=== PATIENT | female | born 2000 | race Caucasian/White ===

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

== ENCOUNTER → 2019-01-26 | Outpatient (CLI) | payer BC, OTHER ==
[2019-01-26 13:50] LABS: HEMATOCRIT 43.2 % (36.0-47.0); HEMOGLOBIN 14.6 g/dl (12.0-15.5); MEAN CORPUSCULAR HEMOGLOBIN 31.9 pg (27.0-33.0); MEAN CORPUSCULAR HGB CONC 33.8 g/dl (32.0-36.5); MEAN CORPUSCULAR VOLUME 94.3 fl (80.0-96.0); PLATELET COUNT, AUTOMATED 249 10^3/uL (150-450); RED BLOOD COUNT 4.58 10^6/uL (4.00-5.40); WHITE BLOOD COUNT 5.6 10^3/uL (4.0-10.0)
[2019-01-26 14:28] LABS: ALBUMIN 4.1 GM/DL (3.2-5.2); ALT/SGPT 26 U/L (12-78); BILIRUBIN,DIRECT 0.1 MG/DL (0.0-0.2); BILIRUBIN,TOTAL 0.4 MG/DL (0.2-1.0); HCG, SERUM QUALITATIVE NEGATIVE (NEGATIVE); TOTAL PROTEIN 7.1 GM/DL (6.4-8.2); TRIGLYCERIDES LEVEL 77 MG/DL (<150)
== END ==
LOC: M LAB 12:09
PROVIDERS: ATTEND Dermatology
DX: L70.0 Acne vulgaris (principal)

== ENCOUNTER → 2019-03-19 | Outpatient (CLI) | payer OTHER ==
[~2019-03-19] MED LIST changes: -LAMO200T2; +LAMO200T3
--- NOTE | 2019-03-19 19:17 | REP ---
Clinical: Trauma. Sprain. Technique: AP, lateral, bilateral oblique views left wrist . Findings: The carpal bones, surrounding osseous structures, soft tissues, and joint spaces are normal. There is no evidence for acute fracture or dislocation. No subcutaneous emphysema or radiodense foreign body. Impression: Normal wrist series. No acute fracture or dislocation Electronically Signed by Ronny Ordaz MD 03/19/2019 07:08 P
== END ==
LOC: M WUC 18:46
PROVIDERS: ATTEND Physician Assistant
DX: S63.512A Sprain of carpal joint of left wrist, initial encounter (principal); X58.XXXA Exposure to other specified factors, initial encounter; Y92.89 Other specified places as the place of occurrence of the external cause

== ENCOUNTER 2019-10-03 12:28 | Emergency (ER) | payer OTHER ==
[~2019-10-03] VITALS: Ht 160 cm; Wt 88.2 kg
[~2019-10-03 12:28] MED LIST changes: +ZONI100C17 PO; -ZONI100C2 PO
[2019-10-03] MEDS ORDERED: ONDANSETRON 4MG/2ML VIAL IV ONE (13:00)
[2019-10-03] MEDS ORDERED: NS 1,000 ML IV ONE (13:00)
[2019-10-03] MEDS ORDERED: KETOROLAC 30 MG/ML 1ML VIAL IV ONE (13:15)
[2019-10-03 13:25] LABS: BASO % 0.5 % (0.0-1.0); HEMATOCRIT 41.8 % (36.0-47.0); HEMOGLOBIN 14.1 g/dl (12.0-15.5); LYMPH # 2.1 10^3/uL (1.5-5.0); LYMPH % 37.3 % (24.0-44.0); MEAN CORPUSCULAR HEMOGLOBIN 30.6 pg (27.0-33.0); MEAN CORPUSCULAR HGB CONC 33.7 g/dl (32.0-36.5); MEAN CORPUSCULAR VOLUME 90.7 fl (80.0-96.0); MONO # 0.4 10^3/uL (0.0-0.8); MONO % 6.3 % (0.0-5.0); NEUTROPHILS # 3.1 10^3/uL (1.5-8.5); NEUTROPHILS % 55.5 % (36.0-66.0); PLATELET COUNT, AUTOMATED 247 10^3/uL (150-450); RED BLOOD COUNT 4.61 10^6/uL (4.00-5.40); WHITE BLOOD COUNT 5.6 10^3/uL (4.0-10.0)
[2019-10-03 14:01] LABS: ALBUMIN 3.7 GM/DL (3.2-5.2); ALT/SGPT 27 U/L (12-78); BILIRUBIN,DIRECT < 0.1 MG/DL (0.0-0.2); BILIRUBIN,TOTAL 0.2 MG/DL (0.2-1.0); LIPASE 66 U/L (73-393); TOTAL PROTEIN 6.6 GM/DL (6.4-8.2)
[2019-10-03 14:46] LABS: AMPHETAMINES LEVEL URINE NEGATIVE (NEGATIVE); BARBITURATES URINE NEGATIVE (NEGATIVE); BENZODIAZEPINES URINE NEGATIVE (NEGATIVE); CANNABINOIDS URINE NEGATIVE (NEGATIVE); COCAINE METABOLITE URINE NEGATIVE (NEGATIVE); METHADONE URINE NEGATIVE (NEGATIVE); OPIATES URINE NEGATIVE (NEGATIVE); PHENCYCLIDINE URINE NEGATIVE (NEGATIVE)
[2019-10-03] MEDS ORDERED: ACETAMINOPHEN 500 MG TAB PO ONE (15:00)
[2019-10-03] MEDS ORDERED: FLOM0.4C39 PO (15:13)
[2019-10-03] MEDS ORDERED: KETO10TAB PO (15:13)
[2019-10-03] MEDS ORDERED: ZOFR8TAB24 PO (15:15)
[2019-10-03] MEDS ORDERED: TAMSULOSIN 0.4 MG CAP PO ONE (15:15)
[2019-10-03 15:39] VITALS: BP 110/86
--- NOTE | 2019-10-04 01:19 | REP ---
CT ABDOMEN AND PELVIS WITHOUT CONTRAST: 10/03/2019. CLINICAL HISTORY: Severe left flank pain. TECHNIQUE: Renal stone protocol with coronal and sagittal reconstructions provided. FINDINGS: CT ABDOMEN: Lung bases clear. Heart is not enlarged. No hiatal hernia. Liver and spleen are not enlarged. There is no focal hepatic or splenic mass. Gallbladder, adrenal glands, and pancreas unremarkable. Small bowel loops in the abdomen were intact. There is no pathologic sized para-aortic or retroperitoneal/mesenteric lymphadenopathy. Colon with scattered stool and gas without sign of colitis or diverticulitis. The left kidney shows a 4 mm stone in the upper pole. There is mild hydronephrosis and hydroureter, which is seen down to the UVJ, where there is a 3 mm calcification in that distal ureter. The right kidney shows no stone or hydronephrosis and no hydroureter or ureteral stone. The bone windows were unremarkable. Visualized ribs and spine intact. CT PELVIS: The bony sacrum, pelvis, and hips were unremarkable. There is mild distal ureteral dilatation on the left and a 3 mm stone at the UVJ, as above. Bladder is nearly empty. No right ureteral dilatation or stone. There is no pelvic lymphadenopathy or free fluid. No sign of colitis or diverticulitis. Uterus anteverted, not enlarged. No adnexal mass. Appendix is seen and unremarkable. There is no ventral or inguinal hernia. No inguinal adenopathy. IMPRESSION: 1. There is a 3 mm stone at the UVJ distally on the left with some mild hydroureter and hydronephrosis. Another 4 mm stone is seen in the upper pole collecting system. 2. Right kidney, collecting system, and ureter were normal. No other significant finding. Electronically Signed by Chalo Terrell MD 10/04/2019 08:42 A
[2019-10-07] MEDS ORDERED: OXYC1TAB23 PO (11:41)
[2019-10-07] MEDS ORDERED: PROM25TA12 PO (11:41)
== END 2019-10-03 15:50 | disposition home or self-care (01) ==
LOC: M ED 12:28
DX: N20.0 Calculus of kidney (principal); R56.9 Unspecified convulsions; Z79.899 Other long term (current) drug therapy
CPT/HCPCS: 74176; 80047; 80076; 80307; 81001; 83605; 83690; 84702; 85025; 87086; 96361; 96374; 96375; 99284; J1885; J2405

== ENCOUNTER → 2019-10-07 | Outpatient (CLI) | payer OTHER ==
[~2019-10-07] MED LIST changes: +FLOM0.4C39 PO; +KETO10TAB PO; +OXYC1TAB23 PO; +PROM25TA12 PO; +VENTAER INH; +ZOFR8TAB24 PO
== END ==
LOC: M LABSMTC 10:02
PROVIDERS: ATTEND Anesthesiology
DX: Z01.818 Encounter for other preprocedural examination (principal); Z11.59 Encounter for screening for other viral diseases
CPT/HCPCS: C9803; U0002

== ENCOUNTER 2019-10-08 06:19 | Day surgery (SDC) | payer OTHER ==
[~2019-10-08] VITALS: Ht 160 cm; Wt 85.7 kg
[~2019-10-08 06:19] MED LIST changes: -VENTAER INH
[2019-10-08] MEDS ORDERED: MIDAZOLAM INJ 2MG/2ML VIAL (J2250 PER 1MG) As Ordered ONE (06:38)
[2019-10-08] MEDS ORDERED: dexameTHASONE 4 MG/ML 1ML VIAL (J1100 PER 1MG) As Ordered ONE (06:39)
[2019-10-08] MEDS ORDERED: propofoL 200 MG/20 ML VIAL As Ordered ONE (06:39)
[2019-10-08] MEDS ORDERED: fentaNYL 100 MCG/2 ML INJECTION (J3010) As Ordered ONE (06:39)
[2019-10-08] MEDS ORDERED: LIDOCAINE 2% 100MG/5ML SDV (FOR ANES.) As Ordered ONE (06:39)
[2019-10-08] MEDS ORDERED: ONDANSETRON 4MG/2ML VIAL As Ordered ONE (06:39)
[2019-10-08] MEDS ORDERED: ceFAZolin SOD 2 GM in IV 1 EA IV ONE (06:45)
[2019-10-08] MEDS ORDERED: SCOPOLAMINE 1MG TRANSDERMAL PATCH As Ordered ONE (06:50)
[2019-10-08 07:11] LABS: INR 1.13; PROTHROMBIN TIME 14.2 SECONDS (11.8-14.0)
[2019-10-08] MEDS ORDERED: CONRAY-60 60% 50ML VIAL (Q9961) As Ordered ONE (07:14)
[2019-10-08] MEDS ORDERED: SCOPOLAMINE 1MG TRANSDERMAL PATCH TOP ONE (07:15)
[2019-10-08] MEDS ORDERED: LR 1,000 ML IV ONE (07:15)
[2019-10-08] MEDS ORDERED: diphenhydrAMINE 50MG/ML VIAL (J1200) As Ordered ONE (07:52)
[2019-10-08] MEDS ORDERED: PERCOCET 5MG/325MG TAB PO PRN (09:00)
[2019-10-08] MEDS ORDERED: MEPERIDINE INJ 25 MG/ML VIAL (J2175) IV PRN (09:00)
[2019-10-08] MEDS ORDERED: METOCLOPRAMIDE INJ 10MG/2ML VIAL (J2765 PER 1) IV PRN (09:00)
[2019-10-08] MEDS ORDERED: oxyCODONE 5MG TAB PO PRN (09:00)
[2019-10-08] MEDS ORDERED: fentaNYL 100 MCG/2 ML INJECTION (J3010) IV PRN (09:00)
[2019-10-08] MEDS ORDERED: LR 1,000 ML IV SCH (09:00)
[2019-10-08] MEDS ORDERED: ONDANSETRON 4MG/2ML VIAL IV PRN (09:00)
--- NOTE | 2019-10-08 09:26 | REP ---
10 seconds of fluoroscopy time was provided to Dr. Ashok Conrad for the procedure of left-sided retrograde pyelography and stent placement. There is contrast opacification of the proximal left renal collecting system. There is a double pigtail stent in place the proximal portion of which is in the renal pelvis and the distal portion of which is in the urinary bladder on the left. Electronically Signed by Elbert Turner DO 10/08/2019 11:25 A
[2019-10-08 09:57] VITALS: BP 125/77
[2019-11-08 14:43] LABS: CA Hydro Phos 5 % (.); Ca Ox Monohydrate 5 % (.); Size 2x2 mm (.)
--- NOTE | 2020-01-28 08:22 | RO ---
DATE OF OPERATION: 10/08/2019 PREOPERATIVE DIAGNOSIS: Ureteral stone. POSTOPERATIVE DIAGNOSIS: Ureteral stone. PROCEDURES: Cystoscopy, left ureteroscopy with basket extraction of stone, left retrograde pyelogram with intra-op interpretative images, left ureteral stent placement. SURGEON: Ashok Conrad MD. DIRECTOR INVESTMENT BANKING: None. ANESTHESIA: General. OPERATIVE INDICATIONS: This is a 19-year-old female who has been having intractable pain due to an obstructing 3 mm distal left ureteral stone. She was brought to the operating room today for treatment. DESCRIPTION OF PROCEDURE: The patient was brought to the operating room and general anesthesia was induced. Prophylactic antibiotics were infused. She was then placed in the dorsal lithotomy position, prepped and draped in the usual sterile fashion. A rigid cystoscope was inserted into the urethral meatus and advanced into the bladder. A guidewire was advanced up the left collecting system. I then went up the left collecting system with a short semi-rigid ureteroscope and at the level of the ureterovesical junction, the 3 mm stone was seen. The stone was grasped with a basket and removed. I then advanced the ureteral access sheath up the left collecting system. I went up the access sheath with a flexible ureteroscope and examined the left kidney thoroughly. No additional stones were seen inside the left kidney. A retrograde pyelogram was performed and was notable for moderate left hydronephrosis with no extravasation. I then withdrew the ureteroscope along with the access sheath, and once again no additional stones were seen inside the ureter. A guidewire was then utilized to advance a 6-Slovak x 22-32 cm JJ ureteral stent up the left collecting system. The wire was then removed and there were adequate curls of stent in the left renal pelvis and in the bladder. The bladder was emptied of all fluids. This marked the conclusion of the procedure. The patient was taken out of the dorsal lithotomy position, awakened from anesthesia, and transferred to the recovery room in stable condition. ESTIMATED BLOOD LOSS: 5 mL. COMPLICATIONS: None. SPECIMEN: Kidney stone. PLAN: Patient will follow up for ureteral stent removal in a week or two. DAVID
== END 2019-10-08 10:10 | disposition home or self-care (01) ==
LOC: M SDC 06:19
PROVIDERS: ATTEND Urology
DX: N20.0 Calculus of kidney (principal); F41.9 Anxiety disorder, unspecified; Z79.899 Other long term (current) drug therapy
CPT/HCPCS: 36415; 52332; 52352; 74420; 81025; 82365; 85610; 88300; C1769; C1894; C2617; J0690; J1100; J1200; J2250; J2405; J3010; Q9961

== ENCOUNTER 2019-12-01 05:55 | Emergency (ER) | payer OTHER ==
[~2019-12-01] VITALS: Ht 160 cm; Wt 84.9 kg
[2019-12-01 07:02] LABS: BASO % 0.5 % (0.0-1.0); EOS % 0.2 % (0.0-3.0); HEMATOCRIT 42.8 % (36.0-47.0); HEMOGLOBIN 14.7 g/dl (12.0-15.5); LYMPH # 2.1 10^3/uL (1.5-5.0); LYMPH % 34.5 % (24.0-44.0); MEAN CORPUSCULAR HEMOGLOBIN 31.1 pg (27.0-33.0); MEAN CORPUSCULAR HGB CONC 34.3 g/dl (32.0-36.5); MEAN CORPUSCULAR VOLUME 90.5 fl (80.0-96.0); MONO # 0.5 10^3/uL (0.0-0.8); MONO % 7.4 % (0.0-5.0); NEUTROPHILS # 3.5 10^3/uL (1.5-8.5); NEUTROPHILS % 56.9 % (36.0-66.0); PLATELET COUNT, AUTOMATED 241 10^3/uL (150-450); RED BLOOD COUNT 4.73 10^6/uL (4.00-5.40); WHITE BLOOD COUNT 6.1 10^3/uL (4.0-10.0)
[2019-12-01 07:23] LABS: BLOOD UREA NITROGEN 11 MG/DL (7-18); CALCIUM LEVEL 8.6 MG/DL (8.5-10.1); CARBON DIOXIDE LEVEL 20 MEQ/L (21-32); CHLORIDE LEVEL 112 MEQ/L (98-107); CREATININE FOR GFR 0.82 MG/DL (0.55-1.30); GLUCOSE, FASTING 102 MG/DL (70-100); POTASSIUM SERUM 3.3 MEQ/L (3.5-5.1); SODIUM LEVEL 139 MEQ/L (136-145)
[2019-12-01 07:54] LABS: HCG, SERUM QUALITATIVE NEGATIVE (NEGATIVE)
[2019-12-01] MEDS ORDERED: ALBUTEROL 90 MCG/ACT 8GM HFA INHALER INH ONE (08:15)
--- NOTE | 2019-12-01 08:53 | REPVR ---
PROCEDURE INFORMATION: Exam: XR Chest, 2 Views Exam date and time: 12/01/2019 6:26 AM Age: 19 years old Clinical indication: Shortness of breath; Additional info: SOB, central chest discomfort TECHNIQUE: Imaging protocol: XR of the chest Views: 2 views. COMPARISON: No relevant prior studies available. FINDINGS: Lungs: Unremarkable. No consolidation. Pleural space: Unremarkable. No pleural effusion. No pneumothorax. Heart/Mediastinum: Unremarkable. No cardiomegaly. Bones/joints: Unremarkable. IMPRESSION: No acute abnormalities are identified. Electronically signed by: Ronny Marquez On 12/01/2019 08:52:53 AM
[2019-12-01] MEDS ORDERED: VENTAER INH (09:04)
[2019-12-01 09:15] VITALS: BP 144/74
--- NOTE | 2019-12-03 14:51 | ECGEPIP ---
[facility] - ED Test Date: 2019-12-01 Pat Name: LYNDA TENORIO Department: Room: - Gender: Female [facility]: natividad : 2000 Requested By: INDIA NAVARRO PA-C. Order Number: [id number] Reading MD: Jessika Mcclain Measurements Intervals [place] Rate: 88 P: 7 [place]: 156 QRS: 39 QRSD: 86 T: 33 QT: 360 QTc: 436 Interpretive Statements SINUS RHYTHM NORMAL ECG SEE SCANNED DOWNTIME REPORT
== END 2019-12-01 09:55 | disposition home or self-care (01) ==
LOC: M ED 05:55
DX: F41.0 Panic disorder [episodic paroxysmal anxiety] (principal); F41.9 Anxiety disorder, unspecified; J45.909 Unspecified asthma, uncomplicated; Z79.899 Other long term (current) drug therapy; Z88.2 Allergy status to sulfonamides

== ENCOUNTER → 2021-02-20 | Outpatient (CLI) | payer OTHER ==
[~2021-02-20] MED LIST changes: +VENTAER INH
== END ==
LOC: M RAD 08:16
PROVIDERS: ATTEND Physician Assistant
DX: M79.661 Pain in right lower leg (principal)

== ENCOUNTER → 2021-08-15 | Outpatient (REF) | payer OTHER ==
[~2021-08-15] MED LIST changes: -ZONI100C17 PO; +ZONI100C67 PO
[2021-08-15 12:39] LABS: HEMATOCRIT 42.8 % (36.0-47.0); HEMOGLOBIN 14.5 g/dl (12.0-15.5); MEAN CORPUSCULAR HEMOGLOBIN 29.9 pg (27.0-33.0); MEAN CORPUSCULAR HGB CONC 33.9 g/dl (32.0-36.5); MEAN CORPUSCULAR VOLUME 88.2 fl (80.0-96.0); PLATELET COUNT, AUTOMATED 239 10^3/uL (150-450); RED BLOOD COUNT 4.85 10^6/uL (4.00-5.40); WHITE BLOOD COUNT 7.7 10^3/uL (4.0-10.0)
[2021-08-15 13:43] LABS: HCG, SERUM QUANTITATIVE 37915 MIU/ML; HEPATITIS B SURFACE ANTIGEN NEGATIVE (NEGATIVE)
[2021-08-15 13:55] LABS: HEPATITIS C VIRUS ABY INDEX 0.1 INDEX (<0.8); HIV 1&2 SCREEN CENTAUR NEGATIVE (NEGATIVE)
== END ==
LOC: M LAB REF 12:22
PROVIDERS: ATTEND Obstetrics & Gynecology
DX: Z32.01 Encounter for pregnancy test, result positive (principal); O36.80X0 Pregnancy with inconclusive fetal viability, not applicable or unspecified

== ENCOUNTER → 2021-09-25 | Outpatient (REF) | payer OTHER | LOC: M LAB REF 16:40 | PROVIDERS: ATTEND Obstetrics & Gynecology | DX: R82.90 Unspecified abnormal findings in urine (principal) ==

== ENCOUNTER 2021-12-05 09:22 | Emergency (ER) | payer OTHER ==
[~2021-12-05] VITALS: Ht 160 cm; Wt 118.7 kg
[2021-12-05] MEDS ORDERED: FOLI1TAB11 (09:32)
[2021-12-05] MEDS ORDERED: ESCITALOPRAM (09:32)
[2021-12-05] MEDS ORDERED: LEVE10003 (09:32)
[2021-12-05 10:49] VITALS: BP 200/120
[2021-12-05] MEDS ORDERED: PROTPAK PO (16:06)
== END 2021-12-05 11:04 | disposition admitted as inpatient to this hospital (09) ==
LOC: M ED 09:22
DX: O16.9 Unspecified maternal hypertension, unspecified trimester (principal); O99.519 Diseases of the respiratory system complicating pregnancy, unspecified trimester; Z79.899 Other long term (current) drug therapy; Z88.2 Allergy status to sulfonamides

== ENCOUNTER 2021-12-05 11:07 | Outpatient (CLI) | payer OTHER ==
[~2021-12-05] VITALS: Ht 160 cm; Wt 118.5 kg
[~2021-12-05 11:07] MED LIST changes: +ESCITALOPRAM; +FOLI1TAB11; +LEVE10003
[2021-12-05] MEDS ORDERED: PANTOPRAZOLE 20 MG TAB PO ONE (13:00)
[2021-12-05] MEDS ORDERED: PANTOPRAZOLE 40MG TAB (PROTONIX) PO ONE (13:05)
[2021-12-05] MEDS ORDERED: PROTPAK PO (16:06)
== END 2021-12-05 16:00 | disposition home or self-care (01) ==
LOC: M LDO 11:07
PROVIDERS: ATTEND Advanced Practice Midwife
DX: O26.892 Other specified pregnancy related conditions, second trimester (principal); R06.02 Shortness of breath; O99.212 Obesity complicating pregnancy, second trimester; E66.9 Obesity, unspecified; O99.612 Diseases of the digestive system complicating pregnancy, second trimester; K21.9 Gastro-esophageal reflux disease without esophagitis; Z88.1 Allergy status to other antibiotic agents; Z3A.23 23 weeks gestation of pregnancy

== ENCOUNTER → 2022-01-07 | Outpatient (CLI) | payer OTHER ==
[~2022-01-07] MED LIST changes: +PROTPAK PO
[2022-01-07 12:29] LABS: BASO % 0.3 % (0.0-1.0); EOS % 0.3 % (0.0-3.0); HEMATOCRIT 39.3 % (36.0-47.0); HEMOGLOBIN 12.9 g/dl (12.0-15.5); LYMPH # 1.4 10^3/uL (1.5-5.0); LYMPH % 13.9 % (24.0-44.0); MEAN CORPUSCULAR HEMOGLOBIN 30.1 pg (27.0-33.0); MEAN CORPUSCULAR HGB CONC 32.8 g/dl (32.0-36.5); MEAN CORPUSCULAR VOLUME 91.8 fl (80.0-96.0); MONO # 0.4 10^3/uL (0.0-0.8); MONO % 4.4 % (2.0-8.0); NEUTROPHILS # 7.8 10^3/uL (1.5-8.5); NEUTROPHILS % 79.6 % (36.0-66.0); PLATELET COUNT, AUTOMATED 237 10^3/uL (150-450); RED BLOOD COUNT 4.28 10^6/uL (4.00-5.40); WHITE BLOOD COUNT 9.9 10^3/uL (4.0-10.0)
== END ==
LOC: M WUC 08:37
PROVIDERS: ATTEND Obstetrics & Gynecology
DX: Z34.82 Encounter for supervision of other normal pregnancy, second trimester (principal)

== ENCOUNTER → 2022-01-14 | Outpatient (CLI) | payer OTHER | LOC: M LAB 07:52 | PROVIDERS: ATTEND Obstetrics & Gynecology | DX: O99.810 Abnormal glucose complicating pregnancy (principal); Z3A.00 Weeks of gestation of pregnancy not specified ==

== ENCOUNTER 2022-02-17 07:23 | Outpatient (CLI) | payer OTHER ==
[~2022-02-17] VITALS: Ht 160 cm; Wt 122.1 kg
[2022-02-17 07:53] VITALS: BP 137/74
[2022-02-17] MEDS ORDERED: PRENTAB9 PO (07:58)
[2022-02-17] MEDS ORDERED: HOME MED LIST COMPLETE! XX SCH (08:00)
[2022-02-17 09:03] LABS: HEMATOCRIT 37.2 % (36.0-47.0); HEMOGLOBIN 12.3 g/dl (12.0-15.5); MEAN CORPUSCULAR HGB CONC 33.1 g/dl (32.0-36.5); MEAN CORPUSCULAR VOLUME 87.7 fl (80.0-96.0); PLATELET COUNT, AUTOMATED 223 10^3/uL (150-450); RED BLOOD COUNT 4.24 10^6/uL (4.00-5.40); WHITE BLOOD COUNT 9.1 10^3/uL (4.0-10.0)
[2022-02-17] MEDS ORDERED: METR-265 PO (12:42)
[2022-02-17 15:27] LABS: GC DNA AMPLIFICATION NEGATIVE (NEGATIVE)
== END 2022-02-17 12:31 | disposition home or self-care (01) ==
LOC: M LDO 07:23
PROVIDERS: ATTEND Obstetrics & Gynecology
DX: O98.313 Other infections with a predominantly sexual mode of transmission complicating pregnancy, third trimester (principal); A59.01 Trichomonal vulvovaginitis; Z3A.34 34 weeks gestation of pregnancy

== ENCOUNTER → 2022-03-06 | Outpatient (REF) | payer OTHER ==
[~2022-03-06] MED LIST changes: +METR-265 PO; +PRENTAB9 PO
== END ==
LOC: M LAB REF 12:55
PROVIDERS: ATTEND Obstetrics & Gynecology
DX: Z34.03 Encounter for supervision of normal first pregnancy, third trimester (principal)

== ENCOUNTER 2022-03-13 02:22 | Emergency (ER) | payer OTHER ==
[~2022-03-13] VITALS: Ht 160 cm; Wt 124.0 kg
[2022-03-13 05:01] VITALS: BP 149/93
== END 2022-03-13 07:39 | disposition admitted as inpatient to this hospital (09) ==
LOC: M ED 02:22
DX: O98.513 Other viral diseases complicating pregnancy, third trimester (principal); Z3A.37 37 weeks gestation of pregnancy; Z79.899 Other long term (current) drug therapy; Z88.2 Allergy status to sulfonamides

== ENCOUNTER 2022-03-13 07:07 | Outpatient (CLI) | payer OTHER ==
[~2022-03-13] VITALS: Ht 160 cm; Wt 126.7 kg
[2022-03-13 07:40] VITALS: BP 135/90
[2022-03-13 07:55] VITALS: BP 130/81
[2022-03-13] MEDS ORDERED: MORPHINE 2 MG/ML 1ML VIAL IV ONE (11:05)
[2022-03-13] MEDS ORDERED: PROMETHAZINE 25MG/ML 1ML VIAL IV ONE (11:05)
== END 2022-03-13 08:35 ==
LOC: M LDO 07:07
PROVIDERS: ATTEND Obstetrics & Gynecology
DX: O98.513 Other viral diseases complicating pregnancy, third trimester (principal); J12.2 Parainfluenza virus pneumonia; Z3A.37 37 weeks gestation of pregnancy

== ENCOUNTER 2022-03-18 09:36 | Inpatient (IN) | payer OTHER ==
[2022-03-18] VITALS (33 sets, daily range): BP systolic 122–164; BP diastolic 71–104
[~2022-03-18] VITALS: Ht 160 cm; Wt 129.6 kg
[2022-03-18] MEDS ORDERED: HOME MED LIST COMPLETE! XX SCH (10:25)
[2022-03-18] MEDS ORDERED: LACTATED RINGER'S 1000 ML IV STA (11:07)
[2022-03-18] MEDS ORDERED: TRANEXAMIC ACID INJection 1,000 MG in NS 100 ML IV PRN (11:10)
[2022-03-18] MEDS ORDERED: OXYTOCIN DRIP 30 UNITS in IV 1 EA IV PRN (11:10)
[2022-03-18] MEDS ORDERED: LIDOCAINE 1% MDV 20ML VIAL INFIL PRN (11:10)
[2022-03-18] MEDS ORDERED: CARBOPROST TROMETHAMINE 250 MCG/ML AMP IM PRN (11:10)
[2022-03-18] MEDS ORDERED: OXYTOCIN INJ 10UNITS/ML 1ML VIAL IM PRN (11:10)
[2022-03-18 11:11] LABS: APPEARANCE, URINE MANUAL CLEAR (CLEAR); COLOR, URINE MANUAL YELLOW (YELLOW)
[2022-03-18 11:12] LABS: PH,URINE MAN 5.5 UNITS (5.0 - 7.0); SPECIFIC GRAVITY,URINE MANUAL 1.015 (1.002-1.035)
[2022-03-18 11:13] LABS: BILIRUBIN, URINE MANUAL NEGATIVE (NEGATIVE); BLOOD URINE MANUAL POSITIVE (NEGATIVE); GLUCOSE, URINE (UA) MANUAL NEGATIVE (NEGATIVE); KETONE, URINE MANUAL 1+ mg/dL (NEGATIVE); LEUKOCYTE ESTERASE, URINE MAN NEGATIVE (NEGATIVE); NITRITE, URINE MANUAL NEGATIVE (NEGATIVE); PROTEIN, URINE MANUAL 1+ mg/dL (NEGATIVE); UROBILINOGEN, URINE MANUAL NORMAL (NORMAL)
[2022-03-18 11:27] LABS: BACTERIA, URINE MOD AMOUNT; HYALINE CAST, URINE NONE SEEN /lpf (0-1); SQUAMOUS EPITHELIAL CELL URINE MOD AMOUNT /hpf (SMALL AMT)
[2022-03-18 11:28] LABS: MUCUS, URINE SMALL AMOUNT (NEGATIVE)
[2022-03-18 11:44] LABS: HEMATOCRIT 39.4 % (36.0-47.0); HEMOGLOBIN 13.3 g/dl (12.0-15.5); MEAN CORPUSCULAR HEMOGLOBIN 28.6 pg (27.0-33.0); MEAN CORPUSCULAR HGB CONC 33.8 g/dl (32.0-36.5); MEAN CORPUSCULAR VOLUME 84.7 fl (80.0-96.0); PLATELET COUNT, AUTOMATED 226 10^3/uL (150-450); RED BLOOD COUNT 4.65 10^6/uL (4.00-5.40); WHITE BLOOD COUNT 11.3 10^3/uL (4.0-10.0)
[2022-03-18 12:07] LABS: URIC ACID 4.7 MG/DL (3.1-7.8)
[2022-03-18 12:09] LABS: LDH LACTATE DEHYDROGENASE 231 U/L (120-246)
[2022-03-18 12:10] LABS: ALT/SGPT 14 U/L (7.0-40); AST/SGOT 17 U/L (<34); BILIRUBIN,TOTAL 0.4 MG/DL (0.3-1.2); CREATININE FOR GFR 0.65 MG/DL (0.55-1.30); GLOMERULAR FILTRATION RATE > 60.0 (>60)
[2022-03-18 13:40] LABS: TOTAL PROTEIN,RANDOM URINE 41.1 MG/DL (0.0-14.0)
[2022-03-18 13:45] LABS: CREATININE,RANDOM URINE 169.4 MG/DL
[2022-03-18] MEDS ORDERED: miSOPROStol 50MCG 1/2 TABLET PO ONE (14:45)
[2022-03-18] MEDS ORDERED: ESCI5SOL3 PO (14:49)
[2022-03-18] MEDS ORDERED: LEXA1TAB2 PO (14:51)
[2022-03-18] MEDS ORDERED: LR 500 ML IV PRN (21:00)
[2022-03-18] MEDS ORDERED: ePHEDrine SULFATE 25 MG/5 ML(5MG/ML) SYRINGE IVP PRN (21:00)
[2022-03-18] MEDS ORDERED: EPIDURAL/PCA KEYS XX PRN (21:00)
[2022-03-18] MEDS ORDERED: ONDANSETRON 4MG 2ML VIAL IV PRN (21:00)
[2022-03-18] MEDS ORDERED: NALOXONE INJ 0.4MG/1ML VIAL IV PRN (21:00)
[2022-03-18] MEDS ORDERED: diphenhydrAMINE 50MG/ML VIAL IV PRN (21:00)
[2022-03-18] MEDS ORDERED: OXYTOCIN DRIP 30 UNITS in IV 1 EA IV SCH (21:10)
[2022-03-18] MEDS: levETIRAcetam 250MG TABLET (KEPPRA) PO SCH (22:37)
[2022-03-18] MEDS: ESCITALOPRAM OXALATE 10 MG TAB (LEXAPRO) PO SCH (22:37)
[2022-03-18] MEDS: FENTANYL/ROPIVACAINE/NACL BAG 100 ML EPIDURAL SCH (22:38)
[2022-03-18] MEDS ORDERED: LR 1,000 ML IV SCH (22:40)
[2022-03-18] MEDS: lamoTRIgine 100MG TAB PO SCH (22:43)
[2022-03-18] MEDS: OXYTOCIN DRIP 30 UNITS in IV 1 EA IV SCH (23:30)
[2022-03-19] VITALS (39 sets, daily range): BP systolic 111–173; BP diastolic 55–97
[2022-03-19] MEDS: FENTANYL/ROPIVACAINE/NACL BAG 100 ML EPIDURAL SCH (06:56)
[2022-03-19 08:22] LABS: CORD GAS ABE A -11.3; CORD GAS HCO3 A 20.6 MEQ/L; CORD GAS O2 SAT A 16.3 %; CORD GAS PCO2 A 75.5 mmHg; CORD GAS PH A 7.053 UNITS; CORD GAS PO2 A 13.2 mmHg; CORD GAS SBC A 14.1 MEQ/L; CORD GAS TCO2 A 22.9 MEQ/L
[2022-03-19 08:26] LABS: CORD GAS ABE V -4.6; CORD GAS HCO3 V 20.1 MEQ/L; CORD GAS O2 SAT V 92.8 %; CORD GAS PCO2 V 36.3 mmHg; CORD GAS PH V 7.361 UNITS; CORD GAS PO2 V 49.7 mmHg; CORD GAS SBC V 20.6 MEQ/L; CORD GAS TCO2 V 21.2 MEQ/L
[2022-03-19] MEDS: levETIRAcetam 250MG TABLET (KEPPRA) PO SCH ×2 (08:59→21:21)
[2022-03-19] MEDS: OXYTOCIN DRIP 30 UNITS in IV 1 EA IV SCH (08:59)
[2022-03-19] MEDS: lamoTRIgine 100MG TAB PO SCH ×2 (09:00→12:26)
[2022-03-19] MEDS ORDERED: LABETALOL 100MG/20ML VIAL IV STA ×2 (09:30→10:08)
[2022-03-19] MEDS ORDERED: LABETALOL 100MG/20ML VIAL As Ordered ONE (09:31)
[2022-03-19] MEDS ORDERED: AMPICILLIN SOD/SULBACTAM SOD 3 GM in D5W MINI-BAG PLUS 100 ML IV ONE (10:00)
[2022-03-19] MEDS ORDERED: ANUSOL HC CREAM 30GM TOP PRN (12:45)
[2022-03-19] MEDS ORDERED: MOM 30ML SUSPENSION UDC PO PRN (12:45)
[2022-03-19] MEDS ORDERED: ACETAMINOPHEN TAB 650MG DOSE (2X325MG) PO PRN (12:45)
[2022-03-19] MEDS ORDERED: ACETAMINOPHEN 500 MG TAB PO PRN (12:45)
[2022-03-19] MEDS ORDERED: IBUPROFEN 600MG TAB PO PRN (12:45)
[2022-03-19] MEDS ORDERED: DOCUSATE SODIUM 100MG CAPSULE PO PRN (12:45)
[2022-03-19] MEDS ORDERED: RHOGAM 300MCG (1500IU) INJ IM SCH (12:45)
[2022-03-19] MEDS: DIBUCAINE 1% OINTMENT 30GM TOP PRN (13:10)
[2022-03-19] MEDS: IBUPROFEN 800 MG TAB PO PRN (13:11)
[2022-03-19 14:54] LABS: HEMATOCRIT 32.8 % (36.0-47.0); MEAN CORPUSCULAR HEMOGLOBIN 28.7 pg (27.0-33.0); MEAN CORPUSCULAR HGB CONC 32.9 g/dl (32.0-36.5); MEAN CORPUSCULAR VOLUME 87.2 fl (80.0-96.0); PLATELET COUNT, AUTOMATED 170 10^3/uL (150-450); RED BLOOD COUNT 3.76 10^6/uL (4.00-5.40); WHITE BLOOD COUNT 16.8 10^3/uL (4.0-10.0)
[2022-03-19 15:02] LABS: HEMOGLOBIN 10.8 g/dl (12.0-15.5)
[2022-03-19 15:12] LABS: URIC ACID 6.3 MG/DL (3.1-7.8)
[2022-03-19 15:14] LABS: LDH LACTATE DEHYDROGENASE 263 U/L (120-246)
[2022-03-19 15:15] LABS: ALT/SGPT 15 U/L (7.0-40); AST/SGOT 23 U/L (<34); BILIRUBIN,TOTAL 0.5 MG/DL (0.3-1.2); CREATININE FOR GFR 0.82 MG/DL (0.55-1.30); GLOMERULAR FILTRATION RATE > 60.0 (>60)
[2022-03-19] MEDS: ESCITALOPRAM OXALATE 10 MG TAB (LEXAPRO) PO SCH (21:21)
[2022-03-20] VITALS (7 sets, daily range): BP systolic 114–150; BP diastolic 58–91
[2022-03-20] MEDS: DIBUCAINE 1% OINTMENT 30GM TOP PRN (06:04)
[2022-03-20] MEDS: PRENATAL VITAMINS CHEWABLE TABLET PO SCH (08:28)
[2022-03-20] MEDS: lamoTRIgine 100MG TAB PO SCH ×2 (08:28→21:51)
[2022-03-20] MEDS: levETIRAcetam 250MG TABLET (KEPPRA) PO SCH ×2 (08:28→21:50)
[2022-03-20] MEDS: IBUPROFEN 800 MG TAB PO PRN ×2 (10:22→21:47)
[2022-03-20] MEDS: ESCITALOPRAM OXALATE 10 MG TAB (LEXAPRO) PO SCH (21:51)
[2022-03-21 02:05] VITALS: BP 131/66
[2022-03-21 05:50] VITALS: BP 143/84
[2022-03-21] MEDS: PRENATAL VITAMINS CHEWABLE TABLET PO SCH (08:29)
[2022-03-21] MEDS: IBUPROFEN 800 MG TAB PO PRN (08:29)
[2022-03-21] MEDS: levETIRAcetam 250MG TABLET (KEPPRA) PO SCH (08:43)
[2022-03-21] MEDS: lamoTRIgine 100MG TAB PO SCH (08:43)
[2022-03-21] MEDS ORDERED: MEASLES,MUMPS,RUBELLA VACCINE INJ (MMR-II) SC.IMMUN ONE (09:00)
[2022-03-21 10:00] VITALS: BP 144/84
[2022-03-21] MEDS: DIBUCAINE 1% OINTMENT 30GM TOP PRN (10:31)
[2022-03-21] MEDS ORDERED: ACET-683 PO (10:51)
[2022-03-21] MEDS ORDERED: IBUP80TA PO (10:51)
== END 2022-03-21 11:42 | disposition home or self-care (01) | DRG 560 ==
LOC: M LDO 09:36 → M LDI 11:05 → M OBS 03-19 12:30
PROVIDERS: ADMIT Advanced Practice Midwife; ATTEND Advanced Practice Midwife
PROC: 10E0XZZ Delivery of Products of Conception, External Approach (ICD-10-PCS; principal; 2022-03-19)
PROC: 0KQM0ZZ Repair Perineum Muscle, Open Approach (ICD-10-PCS; 2022-03-19)
DX: O13.4 Gestational [pregnancy-induced] hypertension without significant proteinuria, complicating childbirth (principal); O99.354 Diseases of the nervous system complicating childbirth; G40.909 Epilepsy, unspecified, not intractable, without status epilepticus; E66.01 Morbid (severe) obesity due to excess calories; O72.1 Other immediate postpartum hemorrhage; O24.420 Gestational diabetes mellitus in childbirth, diet controlled; O99.344 Other mental disorders complicating childbirth; Z37.0 Single live birth; Z3A.38 38 weeks gestation of pregnancy; F41.9 Anxiety disorder, unspecified; F43.10 Post-traumatic stress disorder, unspecified; O99.214 Obesity complicating childbirth; Z88.8 Allergy status to other drugs, medicaments and biological substances; O69.82X0 Labor and delivery complicated by other cord entanglement, without compression, not applicable or unspecified; O76 Abnormality in fetal heart rate and rhythm complicating labor and delivery; O70.1 Second degree perineal laceration during delivery; O77.0 Labor and delivery complicated by meconium in amniotic fluid

== ENCOUNTER → 2022-12-26 | Outpatient (CLI) | payer OTHER ==
[~2022-12-26] MED LIST changes: +ACET-683 PO; +ESCI5SOL3 PO; +IBUP80TA PO; +LEXA1TAB2 PO
== END ==
LOC: M PLARAD 12:41
PROVIDERS: ATTEND Family Medicine Addiction Medicine
DX: R93.89 Abnormal findings on diagnostic imaging of other specified body structures (principal); M51.26 Other intervertebral disc displacement, lumbar region; M48.061 Spinal stenosis, lumbar region without neurogenic claudication; M51.27 Other intervertebral disc displacement, lumbosacral region; M47.817 Spondylosis without myelopathy or radiculopathy, lumbosacral region

== ENCOUNTER 2024-04-23 11:04 | Emergency (ER) | payer OTHER ==
[~2024-04-23] VITALS: Ht 160 cm; Wt 96.9 kg
[2024-04-23] MEDS ORDERED: ZONI100C67 (11:16)
[2024-04-23 12:27] LABS: RSV AMPLIFICATION NEGATIVE (NEGATIVE)
[2024-04-23 13:07] VITALS: BP 122/81; TEMP 97.7; O2SAT 97
[2024-04-23] MEDS: IPRATROPIUM 0.5MG/ALBUTEROL 2.5MG INH SOL UD 3ML (DUONEB) NEB ONE (13:14)
[2024-04-23] MEDS ORDERED: VENTAER INH (13:44)
== END 2024-04-23 13:50 | disposition home or self-care (01) ==
LOC: M ED 11:04
DX: J09.X2 Influenza due to identified novel influenza A virus with other respiratory manifestations (principal); G40.909 Epilepsy, unspecified, not intractable, without status epilepticus; Z88.2 Allergy status to sulfonamides; Z79.52 Long term (current) use of systemic steroids; Z79.1 Long term (current) use of non-steroidal anti-inflammatories (NSAID); Z79.899 Other long term (current) drug therapy

== ENCOUNTER → 2024-06-03 | Outpatient (CLI) | payer OTHER ==
[~2024-06-03] MED LIST changes: +ZONI100C67
== END ==
LOC: M WHC 13:31
PROVIDERS: ATTEND Obstetrics & Gynecology
DX: N92.6 Irregular menstruation, unspecified (principal); N88.8 Other specified noninflammatory disorders of cervix uteri

== ENCOUNTER → 2024-12-31 | Outpatient (REF) | payer OTHER ==
[~2024-12-31] MED LIST changes: -FLOM0.4C39 PO; +TAMS-18 PO
[2024-12-31 18:36] LABS: CHOLESTEROL LEVEL 245.0 MG/DL (<200); CHOLESTEROL RISK RATIO 4.32 (<5); LDL CHOLESTEROL 170.5 MG/DL (<100); MAGNESIUM LEVEL 2.0 MG/DL (1.8-2.4); NON-HDL-C 188.3 MG/DL; TRIGLYCERIDES LEVEL 89.0 MG/DL (<150)
== END ==
LOC: M LAB REF 17:18
PROVIDERS: ATTEND Nurse Practitioner Family
DX: Z13.220 Encounter for screening for lipoid disorders (principal); Z68.37 Body mass index [BMI] 37.0-37.9, adult

== ENCOUNTER 2025-02-26 19:04 | Emergency (ER) | payer OTHER ==
[~2025-02-26] VITALS: Ht 160 cm; Wt 94.9 kg
[~2025-02-26 19:04] MED LIST changes: -LAMO200T3; +LAMO200T3 PO; -ZONI100C67
[2025-02-26 19:06] VITALS: TEMP 97.5
[2025-02-26 20:43] LABS: BASO # 0.0 10^3/uL (0.0-0.2); BASO % 0.4 % (0.0-1.0); EOS # 0.0 10^3/uL (0.0-0.5); EOS % 0.0 % (0.0-3.0); LYMPH # 1.8 10^3/uL (1.5-5.0); LYMPH % 25.3 % (24.0-44.0); MONO # 0.5 10^3/uL (0.0-0.8); MONO % 7.4 % (2.0-8.0); NEUTROPHILS # 4.7 10^3/uL (1.5-8.5); NEUTROPHILS % 66.6 % (36.0-66.0); PLATELET COUNT, AUTOMATED 302 10^3/uL (150-450)
[2025-02-26 21:15] LABS: CK-MB VALUE MASS < 1.0 NG/ML (<3.6)
[2025-02-26 21:16] LABS: CALCIUM LEVEL 9.5 MG/DL (8.5-10.1); CARBON DIOXIDE LEVEL 26 MMOL/L (20-31); CHLORIDE LEVEL 104 MMOL/L (98-107); CREATININE FOR GFR 1.03 MG/DL (0.55-1.30); GLOMERULAR FILTRATION RATE 77.4 (>60); MAGNESIUM LEVEL 2.0 MG/DL (1.8-2.4); POTASSIUM SERUM 4.3 MMOL/L (3.5-5.1); SODIUM LEVEL 140 MMOL/L (136-145)
[2025-02-26 21:18] LABS: FREE T4 1.25 NG/DL (0.89-1.76)
[2025-02-26 21:19] LABS: CPK CREATINE PHOSPHOKINASE 39 U/L (34-145)
[2025-02-26 21:22] LABS: HCG, SERUM QUALITATIVE NEGATIVE (NEGATIVE)
[2025-02-26 21:30] VITALS: BP 110/67; O2SAT 96
== END 2025-02-26 21:41 | disposition home or self-care (01) ==
LOC: M ED 19:04
DX: R42 Dizziness and giddiness (principal); F41.9 Anxiety disorder, unspecified; J45.909 Unspecified asthma, uncomplicated; Z79.52 Long term (current) use of systemic steroids; Z79.1 Long term (current) use of non-steroidal anti-inflammatories (NSAID); Z79.899 Other long term (current) drug therapy; Z88.2 Allergy status to sulfonamides; Z88.8 Allergy status to other drugs, medicaments and biological substances

== ENCOUNTER 2025-03-02 13:10 | Emergency (ER) | payer OTHER ==
[~2025-03-02] VITALS: Ht 160 cm; Wt 93.8 kg
[2025-03-02 14:03] LABS: BASO # 0.0 10^3/uL (0.0-0.2); BASO % 0.5 % (0.0-1.0); EOS # 0.0 10^3/uL (0.0-0.5); EOS % 0.2 % (0.0-3.0); LYMPH # 1.3 10^3/uL (1.5-5.0); LYMPH % 20.4 % (24.0-44.0); MONO # 0.4 10^3/uL (0.0-0.8); MONO % 6.8 % (2.0-8.0); NEUTROPHILS # 4.4 10^3/uL (1.5-8.5); NEUTROPHILS % 71.8 % (36.0-66.0); PLATELET COUNT, AUTOMATED 272 10^3/uL (150-450)
[2025-03-02 14:24] LABS: HCG, SERUM QUALITATIVE NEGATIVE (NEGATIVE)
[2025-03-02 14:25] LABS: CALCIUM LEVEL 8.8 MG/DL (8.5-10.1); CARBON DIOXIDE LEVEL 24 MMOL/L (20-31); CHLORIDE LEVEL 108 MMOL/L (98-107); CREATININE FOR GFR 0.96 MG/DL (0.55-1.30); GLOMERULAR FILTRATION RATE 84.2 (>60); POTASSIUM SERUM 4.4 MMOL/L (3.5-5.1); SODIUM LEVEL 140 MMOL/L (136-145)
[2025-03-02] MEDS: ACETAMINOPHEN *IV* 1,000 MG in IV 1 EA IV ONE (15:12)
[2025-03-02 15:51] LABS: MAGNESIUM LEVEL 2.0 MG/DL (1.8-2.4)
[2025-03-02 15:55] LABS: FREE T4 1.25 NG/DL (0.89-1.76)
[2025-03-02 18:50] VITALS: TEMP 97.3
[2025-03-02] MEDS ORDERED: ONDA-282 PO (18:53)
[2025-03-02] MEDS ORDERED: CYAN-1 PO (18:53)
[2025-03-02] MEDS ORDERED: VENTAER INH (18:53)
[2025-03-02] MEDS ORDERED: OMEP1CAP73 PO (18:53)
[2025-03-02] MEDS ORDERED: ALPR0.5T3 PO (18:53)
[2025-03-02] MEDS ORDERED: NAPR-885 PO (18:53)
[2025-03-02] MEDS ORDERED: SERT-141 PO (18:58)
[2025-03-02] MEDS ORDERED: HOME MED LIST COMPLETE! XX SCH (19:00)
[2025-03-02 19:15] VITALS: BP 126/73; O2SAT 99
== END 2025-03-02 19:30 | disposition home or self-care (01) ==
LOC: M ED 13:10 → EDBD 13:10 → M ED 19:30
DX: R51.9 Headache, unspecified (principal); G40.909 Epilepsy, unspecified, not intractable, without status epilepticus; J45.909 Unspecified asthma, uncomplicated; F41.9 Anxiety disorder, unspecified; Z87.442 Personal history of urinary calculi; Z79.52 Long term (current) use of systemic steroids; Z79.899 Other long term (current) drug therapy; Z79.1 Long term (current) use of non-steroidal anti-inflammatories (NSAID); Z88.2 Allergy status to sulfonamides; Z88.8 Allergy status to other drugs, medicaments and biological substances
CPT/HCPCS: 70551; 80048; 83735; 84439; 84443; 84703; 85025; 93005; 93041; 96365; 99285; J0134